=== PATIENT | female | born 1935 | race Caucasian/White ===

== ENCOUNTER → 2016-11-11 | Outpatient (CLI) | payer MEDICARE, BC ==
[2016-05-19 10:21] VITALS: BP 98/31
[~2016-11-11] MED LIST: ARTHRITIS PAIN325 M1 PO; CALCIUM CARBONATE PO; CALCIUM1 CAP PO; CITRACAL-VIT D1 EACH PO; CLOBETASOL PROP TOP; ELIQUIS5 MG PO; FLECAINIDE ACE100 MG PO; FLECAINIDE ACET50 MG PO; FLECAINIDE PO; MEDI-FIRST ASP325 MG PO; NIZORAL A-D 20200 ML TOP; TOPROL XL50 MG PO; VITAMIN D2000 I1 PO; VITAMIN D22000 IU PO; ZANTAC150 MG PO
== END ==
LOC: LAB 08:47
DX: Z01.419 Encounter for gynecological examination (general) (routine) without abnormal findings (principal); I48.2 Chronic atrial fibrillation; E03.4 Atrophy of thyroid (acquired); Z86.73 Personal history of transient ischemic attack (TIA), and cerebral infarction without residual deficits

== ENCOUNTER → 2016-11-18 | Outpatient (CLI) | payer MEDICARE, BC ==
[2016-11-18 09:58] VITALS: BP 134/47
== END ==
LOC: AMSURD 09:47 → CARDLAB 09:47
DX: I48.91 Unspecified atrial fibrillation (principal)

== ENCOUNTER → 2016-12-01 | Outpatient (CLI) | payer MEDICARE, BC ==
[2016-11-18 09:58] VITALS: BP 134/47
== END ==
LOC: MAMMO 08:58
DX: Z12.31 Encounter for screening mammogram for malignant neoplasm of breast (principal)
CPT/HCPCS: G0202

== ENCOUNTER 2017-02-22 11:07 | Emergency (ER) | payer MEDICARE, BC ==
[~2017-02-22] VITALS: Ht 175.3 cm; Wt 63.2 kg
[2017-02-22 12:15] VITALS: BP 160/73
== END 2017-02-22 12:15 | disposition home or self-care (01) ==
LOC: ED 11:07
DX: I48.91 Unspecified atrial fibrillation (principal); Z79.01 Long term (current) use of anticoagulants; R42 Dizziness and giddiness; E03.9 Hypothyroidism, unspecified

== ENCOUNTER → 2017-11-03 | Outpatient (CLI) | payer MEDICARE, BC ==
[~2017-11-03] VITALS: Ht 175.3 cm; Wt 61.4 kg
[2017-11-03 11:08] VITALS: BP 134/62
== END ==
LOC: AMSURD 10:47
DX: I48.0 Paroxysmal atrial fibrillation (principal)

== ENCOUNTER → 2017-11-28 | Outpatient (CLI) | payer MEDICARE, BC ==
[2017-11-03 11:08] VITALS: BP 134/62
[2017-11-28 09:30] LABS: EOS # 0.1 (0.04-0.40); EOS % 1.8 % (1.0-5.0); HEMATOCRIT 46.2 % (37.0-47.0); HEMOGLOBIN 15.2 g/dL (12.5-16.0); LYMPH# 1.1 (1.50-4.00); MEAN CELL VOLUME 94 fl (78-100); MEAN CORPUSCULAR HEMOGLOBIN 31 pg (27-31); MEAN CORPUSCULAR HGB CONC 33 g/dL (33-37); MEAN PLATELET VOLUME 10.7 fl (7.4-10.4); MONO # 0.5 (0.20-0.80); NEU # 3.3 (1.40-6.50); PLATELET COUNT 184 K/mm3 (130-400); RED BLOOD COUNT 4.92 M/mm3 (4.10-5.30); RED CELL DISTRIBUTION WIDTH 13.2 % (11.5-14.5)
[2017-11-28 09:48] LABS: ALBUMIN 4.3 g/dL (3.5-5.0); BUN/CREATININE RATIO 21.1 (6.0-26.0); CALCIUM 9.5 mg/dL (8.4-10.2); POTASSIUM 4.6 mmol/L (3.6-5.0); TOTAL BILIRUBIN 0.7 mg/dL (0.2-1.3); TOTAL PROTEIN 8.1 g/dL (6.3-8.2)
== END ==
LOC: LAB 09:10
PROVIDERS: Nurse Practitioner Family
DX: Z00.00 Encounter for general adult medical examination without abnormal findings (principal); E03.9 Hypothyroidism, unspecified; I48.91 Unspecified atrial fibrillation

== ENCOUNTER → 2017-12-13 | Outpatient (CLI) | payer MEDICARE, BC ==
[2017-11-03 11:08] VITALS: BP 134/62
== END ==
LOC: MAMMO 15:02
DX: Z12.31 Encounter for screening mammogram for malignant neoplasm of breast (principal)

== ENCOUNTER → 2018-05-16 | Outpatient (CLI) | payer MEDICARE, BC ==
[~2018-05-16] VITALS: Ht 175.3 cm; Wt 59.1 kg
[2018-05-16 13:34] VITALS: BP 134/51
== END ==
LOC: AMSURD 13:18
DX: I48.0 Paroxysmal atrial fibrillation (principal)

== ENCOUNTER → 2019-01-04 | Outpatient (CLI) | payer MEDICARE, BC ==
[2018-05-16 13:34] VITALS: BP 134/51
[2019-01-04 17:12] LABS: ALBUMIN 4.1 g/dL (3.4-4.8); POTASSIUM 4.4 mmol/L (3.5-5.1)
[2019-01-04 17:13] LABS: CALCIUM 10.2 mg/dL (8.3-10.5)
[2019-01-04 17:14] LABS: TOTAL PROTEIN 7.5 g/dL (6.2-8.1)
[2019-01-04 17:16] LABS: TOTAL BILIRUBIN 0.5 mg/dL (0.2-1.2)
[2019-01-04 18:05] LABS: EOS # 0.1 (0.04-0.40); EOS % 1.5 % (1.0-5.0); HEMATOCRIT 37.1 % (37.0-47.0); HEMOGLOBIN 11.6 g/dL (12.5-16.0); LYMPH# 1.5 (1.50-4.00); MEAN CELL VOLUME 86 fl (78-100); MEAN CORPUSCULAR HEMOGLOBIN 27 pg (27-31); MEAN CORPUSCULAR HGB CONC 31 g/dL (33-37); MEAN PLATELET VOLUME 11.9 fl (7.4-10.4); MONO # 0.7 (0.20-0.80); NEU # 5.8 (1.40-6.50); PLATELET COUNT 186 K/mm3 (130-400); RED BLOOD COUNT 4.32 M/mm3 (4.10-5.30); RED CELL DISTRIBUTION WIDTH 17.8 % (11.5-14.5); WHITE BLOOD COUNT 8.1 K/mm3 (4.8-10.8)
== END ==
LOC: LAB 16:22
PROVIDERS: Family Medicine
DX: I48.91 Unspecified atrial fibrillation (principal); R63.0 Anorexia; E03.9 Hypothyroidism, unspecified; E55.9 Vitamin D deficiency, unspecified

== ENCOUNTER → 2019-01-15 | Outpatient (CLI) | payer MEDICARE, BC ==
[2018-05-16 13:34] VITALS: BP 134/51
== END ==
LOC: MAMMO 12:56
DX: Z12.31 Encounter for screening mammogram for malignant neoplasm of breast (principal)

== ENCOUNTER → 2019-02-08 | Outpatient (CLI) | payer MEDICARE, BC ==
[2018-05-16 13:34] VITALS: BP 134/51
== END ==
LOC: CARDREHAB 07:32 → CARDLAB 09:26
DX: I48.0 Paroxysmal atrial fibrillation (principal); Z79.01 Long term (current) use of anticoagulants; Z79.899 Other long term (current) drug therapy
CPT/HCPCS: A9500

== ENCOUNTER 2019-03-02 19:02 | Emergency (ER) | payer MEDICARE, BC ==
[~2019-03-02] VITALS: Ht 175.3 cm; Wt 61.8 kg
[~2019-03-02 19:02] MED LIST changes: -FLECAINIDE ACET50 MG PO
[2019-03-02 20:03] LABS: HEMATOCRIT 41.8 % (37.0-47.0); HEMOGLOBIN 13.8 g/dL (12.5-16.0); MEAN CELL VOLUME 93 fl (78-100); MEAN CORPUSCULAR HEMOGLOBIN 31 pg (27-31); MEAN CORPUSCULAR HGB CONC 33 g/dL (33-37); MEAN PLATELET VOLUME 10.9 fl (7.4-10.4); PLATELET COUNT 192 K/mm3 (130-400); RED CELL DISTRIBUTION WIDTH 12.9 % (11.5-14.5); WHITE BLOOD COUNT 5.4 K/mm3 (4.8-10.8)
[2019-03-02 20:12] LABS: POTASSIUM 4.4 mmol/L (3.5-5.1)
[2019-03-02 20:13] LABS: CALCIUM 9.6 mg/dL (8.3-10.5)
[2019-03-02 20:16] LABS: TOTAL BILIRUBIN 0.5 mg/dL (0.2-1.2)
[2019-03-02 20:18] LABS: LYMPHOCYTE 25 % (20-51); MONOCYTE 12 % (3-10); NEUTROPHILS 59 % (42-75)
[2019-03-02 21:40] VITALS: BP 157/67
== END 2019-03-02 21:40 | disposition home or self-care (01) ==
LOC: ED 19:02
PROVIDERS: Family Medicine
DX: I48.91 Unspecified atrial fibrillation (principal); Z79.01 Long term (current) use of anticoagulants; Z86.73 Personal history of transient ischemic attack (TIA), and cerebral infarction without residual deficits; Z87.891 Personal history of nicotine dependence

== ENCOUNTER → 2020-02-05 | Outpatient (CLI) | payer MEDICARE, BC ==
[2020-02-05 14:24] LABS: EOS # 0.1 (0.04-0.40); HEMATOCRIT 43.5 % (37.0-47.0); HEMOGLOBIN 14.3 g/dL (12.5-16.0); LYMPH# 0.9 (1.50-4.00); MEAN CELL VOLUME 94 fl (78-100); MEAN CORPUSCULAR HEMOGLOBIN 31 pg (27-31); MEAN CORPUSCULAR HGB CONC 33 g/dL (33-37); MEAN PLATELET VOLUME 10.4 fl (7.4-10.4); MONO # 0.5 (0.20-0.80); NEU # 3.7 (1.40-6.50); PLATELET COUNT 199 K/mm3 (130-400); RED BLOOD COUNT 4.62 M/mm3 (4.10-5.30); RED CELL DISTRIBUTION WIDTH 12.7 % (11.5-14.5); WHITE BLOOD COUNT 5.2 K/mm3 (4.8-10.8)
[2020-02-05 14:34] LABS: POTASSIUM 4.4 mmol/L (3.5-5.1)
[2020-02-05 14:35] LABS: ALBUMIN 4.1 g/dL (3.4-4.8)
[2020-02-05 14:36] LABS: CALCIUM 9.7 mg/dL (8.3-10.5)
[2020-02-05 14:37] LABS: TOTAL PROTEIN 7.2 g/dL (6.2-8.1)
[2020-02-05 14:39] LABS: TOTAL BILIRUBIN 0.5 mg/dL (0.2-1.2)
== END ==
LOC: LAB 14:13
PROVIDERS: Family Medicine
DX: Z00.00 Encounter for general adult medical examination without abnormal findings (principal); E03.4 Atrophy of thyroid (acquired); I48.91 Unspecified atrial fibrillation; Z86.73 Personal history of transient ischemic attack (TIA), and cerebral infarction without residual deficits

== ENCOUNTER → 2020-09-18 | Outpatient (CLI) | payer MEDICARE, BC ==
[2020-09-18 14:39] LABS: HEMATOCRIT 43.6 % (37.0-47.0); MEAN CELL VOLUME 96 fl (78-100); MEAN CORPUSCULAR HEMOGLOBIN 31 pg (27-31); MEAN CORPUSCULAR HGB CONC 32 g/dL (33-37); MEAN PLATELET VOLUME 10.8 fl (7.4-10.4); PLATELET COUNT 197 K/mm3 (130-400); RED BLOOD COUNT 4.56 M/mm3 (4.10-5.30); RED CELL DISTRIBUTION WIDTH 12.5 % (11.5-14.5); WHITE BLOOD COUNT 4.4 K/mm3 (4.8-10.8)
[2020-09-18 14:45] LABS: POTASSIUM 4.5 mmol/L (3.5-5.1)
[2020-09-18 14:46] LABS: CALCIUM 9.5 mg/dL (8.3-10.5)
[2020-09-18 14:49] LABS: TOTAL BILIRUBIN 0.4 mg/dL (0.2-1.2)
[2020-09-18 15:27] LABS: LYMPHOCYTE 23 % (20-51); MONOCYTE 15 % (3-10); NEUTROPHILS 60 % (42-75)
[2020-09-18 16:40] LABS: URINE APPEARANCE CLEAR; URINE BILIRUBIN NEGATIVE (NEGATIVE); URINE BLOOD NEGATIVE (NEGATIVE); URINE COLOR YELLOW; URINE GLUCOSE NEGATIVE (NEGATIVE); URINE KETONE NEGATIVE (NEGATIVE); URINE LEUKOCYTE ESTERASE NEGATIVE (NEGATIVE); URINE NITRATE NEGATIVE (NEGATIVE); URINE PROTEIN(semi-quant) NEGATIVE (NEGATIVE); URINE UROBILINOGEN NORMAL (NORMAL)
[2020-09-18 16:41] LABS: URINE WBC 0-1 /hpf (0-3)
== END ==
LOC: LAB 14:25
PROVIDERS: Family Medicine
DX: R53.1 Weakness (principal); E03.9 Hypothyroidism, unspecified; E55.9 Vitamin D deficiency, unspecified

== ENCOUNTER → 2020-10-16 | Outpatient (CLI) | payer MEDICARE, BC | LOC: AMSURD 13:37 | DX: I48.0 Paroxysmal atrial fibrillation (principal) ==

== ENCOUNTER → 2021-04-28 | Outpatient (CLI) | payer MEDICARE, BC ==
[2021-04-28 10:36] LABS: BASO # 0.03 K/mm3 (0.02-0.10); EOS # 0.08 K/mm3 (0.04-0.40); EOS % 1.9 % (1.0-5.0); HEMATOCRIT 43.7 % (37.0-47.0); HEMOGLOBIN 14.3 g/dL (12.5-16.0); LYMPH# 0.86 K/mm3 (1.50-4.00); MEAN CELL VOLUME 95 fl (78-100); MEAN CORPUSCULAR HEMOGLOBIN 31 pg (27-31); MEAN CORPUSCULAR HGB CONC 33 g/dL (33-37); MEAN PLATELET VOLUME 10.5 fl (7.4-10.4); MONO # 0.52 K/mm3 (0.20-0.80); NEU # 2.63 K/mm3 (1.40-6.50); PLATELET COUNT 181 K/mm3 (130-400); RED BLOOD COUNT 4.61 M/mm3 (4.10-5.30); WHITE BLOOD COUNT 4.1 K/mm3 (4.8-10.8)
[2021-04-28 10:51] LABS: POTASSIUM 4.5 mmol/L (3.5-5.1)
[2021-04-28 10:53] LABS: CALCIUM 10.4 mg/dL (8.3-10.5)
[2021-04-28 10:54] LABS: TOTAL PROTEIN 6.8 g/dL (6.2-8.1)
[2021-04-28 10:56] LABS: TOTAL BILIRUBIN 0.7 mg/dL (0.2-1.2)
== END ==
LOC: LAB 10:10
PROVIDERS: Family Medicine
DX: I48.0 Paroxysmal atrial fibrillation (principal); E03.9 Hypothyroidism, unspecified; E55.9 Vitamin D deficiency, unspecified

== ENCOUNTER 2021-08-26 13:25 | Observation (INO) | payer MEDICARE, BC ==
[~2021-08-26] VITALS: Wt 47.7 kg
[2021-08-26] MEDS ORDERED: DITROPAN XL 5MG5 M1 PO (13:32)
[2021-08-26 14:10] LABS: BASO # 0.03 K/mm3 (0.02-0.10); EOS # 0.06 K/mm3 (0.04-0.40); EOS % 1.3 % (1.0-5.0); HEMATOCRIT 40.6 % (37.0-47.0); HEMOGLOBIN 13.4 g/dL (12.5-16.0); LYMPH# 1.05 K/mm3 (1.50-4.00); MEAN CELL VOLUME 95 fl (78-100); MEAN CORPUSCULAR HEMOGLOBIN 31 pg (27-31); MEAN CORPUSCULAR HGB CONC 33 g/dL (33-37); MEAN PLATELET VOLUME 10.4 fl (7.4-10.4); MONO # 0.54 K/mm3 (0.20-0.80); NEU # 3.04 K/mm3 (1.40-6.50); PLATELET COUNT 178 K/mm3 (130-400); RED BLOOD COUNT 4.27 M/mm3 (4.10-5.30); RED CELL DISTRIBUTION WIDTH 12.2 % (11.5-14.5); WHITE BLOOD COUNT 4.7 K/mm3 (4.8-10.8)
[2021-08-26 14:23] LABS: ALBUMIN 3.9 g/dL (3.4-4.8)
[2021-08-26 14:24] LABS: POTASSIUM 4.4 mmol/L (3.5-5.1)
[2021-08-26 14:25] LABS: CALCIUM 9.7 mg/dL (8.3-10.5)
[2021-08-26 14:26] LABS: TOTAL PROTEIN 6.5 g/dL (6.2-8.1)
[2021-08-26 14:28] LABS: TOTAL BILIRUBIN 0.6 mg/dL (0.2-1.2)
[2021-08-26 14:58] LABS: PH-URINE 5.5 (5.0 - 8.0); URINE APPEARANCE HAZY; URINE BILIRUBIN NEGATIVE (NEGATIVE); URINE BLOOD NEGATIVE (NEGATIVE); URINE COLOR YELLOW; URINE GLUCOSE NEGATIVE (NEGATIVE); URINE KETONE NEGATIVE (NEGATIVE); URINE LEUKOCYTE ESTERASE 1+ (NEGATIVE); URINE NITRATE NEGATIVE (NEGATIVE); URINE PROTEIN(semi-quant) TRACE (NEGATIVE); URINE UROBILINOGEN NORMAL (NORMAL)
[2021-08-26 14:59] LABS: URINE MUCUS PRESENT (NOT PRESENT)
[2021-08-26 15:33] VITALS: BP 180/63
[2021-08-26 18:00] VITALS: BP 189/68
[2021-08-26 22:47] VITALS: BP 149/68
[2021-08-27 06:03] VITALS: BP 159/62
[2021-08-27 10:10] VITALS: BP 122/63
== END 2021-08-27 14:10 | disposition home or self-care (01) ==
LOC: ED 13:25 → MED/SURG 16:59
PROVIDERS: ADMIT Physician Assistant
DX: R41.0 Disorientation, unspecified (principal); I63.9 Cerebral infarction, unspecified; I83.90 Asymptomatic varicose veins of unspecified lower extremity; I48.0 Paroxysmal atrial fibrillation; R53.1 Weakness; K21.9 Gastro-esophageal reflux disease without esophagitis; E03.9 Hypothyroidism, unspecified; E55.9 Vitamin D deficiency, unspecified; I10 Essential (primary) hypertension; R29.6 Repeated falls; F32.A Depression, unspecified; Z79.899 Other long term (current) drug therapy; Z79.01 Long term (current) use of anticoagulants
CPT/HCPCS: G0378

== ENCOUNTER 2021-09-11 14:46 | Observation (INO) | payer MEDICARE, BC ==
[~2021-09-11] VITALS: Ht 175.3 cm; Wt 46.9 kg
[~2021-09-11 14:46] MED LIST changes: +DITROPAN XL 5MG5 M1 PO
[2021-09-11 15:22] LABS: BASO # 0.02 K/mm3 (0.02-0.10); EOS # 0.01 K/mm3 (0.04-0.40); EOS % 0.1 % (1.0-5.0); HEMOGLOBIN 14.8 g/dL (12.5-16.0); LYMPH# 0.66 K/mm3 (1.50-4.00); MEAN CELL VOLUME 92 fl (78-100); MEAN CORPUSCULAR HEMOGLOBIN 32 pg (27-31); MEAN CORPUSCULAR HGB CONC 34 g/dL (33-37); MEAN PLATELET VOLUME 10.6 fl (7.4-10.4); MONO # 0.23 K/mm3 (0.20-0.80); PLATELET COUNT 188 K/mm3 (130-400); RED BLOOD COUNT 4.68 M/mm3 (4.10-5.30); RED CELL DISTRIBUTION WIDTH 11.9 % (11.5-14.5); WHITE BLOOD COUNT 7.2 K/mm3 (4.8-10.8)
[2021-09-11 15:33] LABS: POTASSIUM 4.3 mmol/L (3.5-5.1)
[2021-09-11 15:34] LABS: CALCIUM 9.8 mg/dL (8.3-10.5)
[2021-09-11 17:13] LABS: URINE APPEARANCE CLOUDY; URINE BILIRUBIN NEGATIVE (NEGATIVE); URINE BLOOD TRACE (NEGATIVE); URINE COLOR YELLOW; URINE GLUCOSE NEGATIVE (NEGATIVE); URINE KETONE 1+ (NEGATIVE); URINE LEUKOCYTE ESTERASE TRACE (NEGATIVE); URINE NITRATE NEGATIVE (NEGATIVE); URINE PROTEIN(semi-quant) TRACE (NEGATIVE); URINE UROBILINOGEN NORMAL (NORMAL)
[2021-09-11] MEDS ORDERED: ARICEPT10 M1 PO (21:33)
[2021-09-11 22:00] VITALS: BP 183/54
[2021-09-12] VITALS (7 sets, daily range): BP systolic 77–181; BP diastolic 49–76
[2021-09-13 01:12] VITALS: BP 180/66
[2021-09-13 05:48] VITALS: BP 177/76
[2021-09-13 08:24] VITALS: BP 167/64
[2021-09-13 10:09] LABS: POTASSIUM 3.9 mmol/L (3.5-5.1)
[2021-09-13 10:10] LABS: CALCIUM 9.6 mg/dL (8.3-10.5)
[2021-09-13 10:11] LABS: BASO # 0.03 K/mm3 (0.02-0.10); EOS # 0.08 K/mm3 (0.04-0.40); EOS % 1.3 % (1.0-5.0); HEMATOCRIT 40.1 % (37.0-47.0); HEMOGLOBIN 13.7 g/dL (12.5-16.0); LYMPH# 1.49 K/mm3 (1.50-4.00); MEAN CELL VOLUME 94 fl (78-100); MEAN CORPUSCULAR HEMOGLOBIN 32 pg (27-31); MEAN CORPUSCULAR HGB CONC 34 g/dL (33-37); MEAN PLATELET VOLUME 12.2 fl (7.4-10.4); MONO # 0.55 K/mm3 (0.20-0.80); NEU # 3.79 K/mm3 (1.40-6.50); PLATELET COUNT 200 K/mm3 (130-400); RED BLOOD COUNT 4.28 M/mm3 (4.10-5.30); RED CELL DISTRIBUTION WIDTH 11.9 % (11.5-14.5); WHITE BLOOD COUNT 5.9 K/mm3 (4.8-10.8)
[2021-09-13 13:11] VITALS: BP 147/67
[2021-09-13 18:08] VITALS: BP 160/65
[2021-09-13 21:35] VITALS: BP 162/74
[2021-09-14 05:53] VITALS: BP 150/56
[2021-09-14 10:01] VITALS: BP 94/59
[2021-09-14 13:54] VITALS: BP 116/57
[2021-09-14 18:10] VITALS: BP 158/59
[2021-09-14 22:40] VITALS: BP 162/52
[2021-09-15 02:08] VITALS: BP 154/58
[2021-09-15 06:06] VITALS: BP 193/48
[2021-09-15] MEDS ORDERED: LISINOPRIL20 MG PO (08:59)
[2021-09-15] MEDS ORDERED: PROMETHAZINE12.5 M5 PO (09:01)
[2021-09-15] MEDS ORDERED: ACETAMINOPHEN325 M1 PO (09:02)
[2021-09-15] MEDS ORDERED: HEALTHYLAX17 GM/Dose PO (09:02)
[2021-09-15 09:22] VITALS: BP 132/69
[2021-09-15 09:32] VITALS: BP 132/69
== END 2021-09-15 11:23 ==
LOC: ED 14:46 → MED/SURG 20:04
PROVIDERS: Nurse Practitioner; ADMIT Family Medicine
DX: I10 Essential (primary) hypertension (principal); F03.90 Unspecified dementia, unspecified severity, without behavioral disturbance, psychotic disturbance, mood disturbance, and anxiety; N39.0 Urinary tract infection, site not specified; R11.0 Nausea; R00.1 Bradycardia, unspecified; Z86.79 Personal history of other diseases of the circulatory system; Z79.01 Long term (current) use of anticoagulants; Z79.899 Other long term (current) drug therapy; Z20.822 Contact with and (suspected) exposure to COVID-19
CPT/HCPCS: G0378; J0696; J3490; J7040

== ENCOUNTER → 2021-09-22 | Outpatient (CLI) | payer MEDICARE, BC ==
[~2021-09-22] MED LIST changes: +ACETAMINOPHEN325 M1 PO; +ARICEPT10 M1 PO; +HEALTHYLAX17 GM/Dose PO; +LISINOPRIL20 MG PO; +PROMETHAZINE12.5 M5 PO
[2021-09-22 14:37] LABS: URINE APPEARANCE CLOUDY; URINE COLOR YELLOW
[2021-09-22 14:43] LABS: PH-URINE 6.5 (5.0 - 8.0); URINE BILIRUBIN NEGATIVE (NEGATIVE); URINE BLOOD TRACE (NEGATIVE); URINE GLUCOSE NEGATIVE (NEGATIVE); URINE KETONE NEGATIVE (NEGATIVE); URINE LEUKOCYTE ESTERASE 1+ (NEGATIVE); URINE NITRATE NEGATIVE (NEGATIVE); URINE PROTEIN(semi-quant) TRACE (NEGATIVE); URINE UROBILINOGEN NORMAL (NORMAL)
[2021-09-22 14:44] LABS: URINE MUCUS PRESENT (NOT PRESENT)
== END ==
LOC: LAB 14:06
PROVIDERS: Family Medicine
DX: I63.9 Cerebral infarction, unspecified (principal); F03.90 Unspecified dementia, unspecified severity, without behavioral disturbance, psychotic disturbance, mood disturbance, and anxiety; K21.9 Gastro-esophageal reflux disease without esophagitis; E03.9 Hypothyroidism, unspecified; N39.46 Mixed incontinence; I48.0 Paroxysmal atrial fibrillation; F32.9 Major depressive disorder, single episode, unspecified; E55.9 Vitamin D deficiency, unspecified; N39.0 Urinary tract infection, site not specified

== ENCOUNTER → 2021-10-05 | Outpatient (CLI) | payer MEDICARE, BC ==
[2021-10-05 16:26] LABS: HEMATOCRIT 45.6 % (37.0-47.0); HEMOGLOBIN 15.3 g/dL (12.5-16.0); MEAN PLATELET VOLUME 12.2 fl (7.4-10.4); RED BLOOD COUNT 4.86 M/mm3 (4.10-5.30); RED CELL DISTRIBUTION WIDTH 11.9 % (11.5-14.5)
[2021-10-05 16:34] LABS: ALBUMIN 4.2 g/dL (3.4-4.8); POTASSIUM 4.3 mmol/L (3.5-5.1)
[2021-10-05 16:35] LABS: CALCIUM 10.7 mg/dL (8.3-10.5)
[2021-10-05 16:36] LABS: TOTAL PROTEIN 7.3 g/dL (6.2-8.1)
[2021-10-05 16:38] LABS: TOTAL BILIRUBIN 0.6 mg/dL (0.2-1.2)
== END ==
LOC: LAB 15:24
PROVIDERS: Family Medicine
DX: R53.1 Weakness (principal)

== ENCOUNTER → 2021-10-07 | Outpatient (CLI) | payer MEDICARE, BC ==
[2021-10-07 23:34] LABS: PTH,INTACT 42.4 pg/mL (6.6-88.9)
== END ==
LOC: LAB 09:17
PROVIDERS: Family Medicine
DX: E83.52 Hypercalcemia (principal)

== ENCOUNTER → 2021-10-15 | Outpatient (CLI) | payer MEDICARE, BC | LOC: RAD 12:16 | DX: R10.9 Unspecified abdominal pain (principal) ==

== ENCOUNTER → 2021-11-10 | Day surgery (SDC) | payer MEDICARE, BC | END | disposition home or self-care (01) | LOC: MSO 10:18 | DX: H25.812 Combined forms of age-related cataract, left eye (principal) | CPT/HCPCS: 00142; J0171; J2250; V2632 ==

== ENCOUNTER → 2021-12-08 | Day surgery (SDC) | payer MEDICARE, BC | END | disposition home or self-care (01) | LOC: MSO 02:16 | DX: H25.811 Combined forms of age-related cataract, right eye (principal) | CPT/HCPCS: 00142; J0171; J2250; V2632 ==

== ENCOUNTER 2022-02-01 10:21 | Emergency (ER) | payer MEDICARE, BC ==
[~2022-02-01] VITALS: Ht 167.6 cm; Wt 49.9 kg
[2022-02-01 11:27] LABS: BASO # 0.03 K/mm3 (0.02-0.10); EOS # 0.05 K/mm3 (0.04-0.40); EOS % 1.1 % (1.0-5.0); HEMATOCRIT 39.9 % (37.0-47.0); HEMOGLOBIN 13.1 g/dL (12.5-16.0); LYMPH# 0.79 K/mm3 (1.50-4.00); MEAN CELL VOLUME 97 fl (78-100); MEAN CORPUSCULAR HEMOGLOBIN 32 pg (27-31); MEAN CORPUSCULAR HGB CONC 33 g/dL (33-37); MEAN PLATELET VOLUME 11.2 fl (7.4-10.4); MONO # 0.37 K/mm3 (0.20-0.80); PLATELET COUNT 167 K/mm3 (130-400); RED BLOOD COUNT 4.13 M/mm3 (4.10-5.30); RED CELL DISTRIBUTION WIDTH 11.8 % (11.5-14.5); WHITE BLOOD COUNT 4.7 K/mm3 (4.8-10.8)
[2022-02-01 11:33] LABS: ALBUMIN 3.8 g/dL (3.4-4.8)
[2022-02-01 11:34] LABS: POTASSIUM 4.1 mmol/L (3.5-5.1)
[2022-02-01 11:36] LABS: TOTAL PROTEIN 7.1 g/dL (6.2-8.1)
[2022-02-01 11:37] LABS: CALCIUM 9.5 mg/dL (8.3-10.5)
[2022-02-01 11:38] LABS: TOTAL BILIRUBIN 0.6 mg/dL (0.2-1.2)
[2022-02-01 11:39] LABS: PROTHROMBIN TIME 10.2 SECONDS (9.0-12.0)
[2022-02-01 13:35] LABS: URINE APPEARANCE CLEAR; URINE BILIRUBIN NEGATIVE (NEGATIVE); URINE BLOOD TRACE (NEGATIVE); URINE COLOR YELLOW; URINE GLUCOSE NEGATIVE (NEGATIVE); URINE KETONE NEGATIVE (NEGATIVE); URINE LEUKOCYTE ESTERASE TRACE (NEGATIVE); URINE MUCUS PRESENT (NOT PRESENT); URINE NITRATE NEGATIVE (NEGATIVE); URINE PROTEIN(semi-quant) TRACE (NEGATIVE); URINE UROBILINOGEN NORMAL (NORMAL)
[2022-02-01] MEDS ORDERED: ZOFRAN ODT4 MG PO (14:45)
[2022-02-01 15:00] VITALS: BP 154/87
== END 2022-02-01 15:07 | disposition home or self-care (01) ==
LOC: ED 10:21
PROVIDERS: Physician Assistant
DX: R53.1 Weakness (principal); R11.2 Nausea with vomiting, unspecified; I48.0 Paroxysmal atrial fibrillation; Z20.822 Contact with and (suspected) exposure to COVID-19; Z79.01 Long term (current) use of anticoagulants
CPT/HCPCS: J2405; J7030

== ENCOUNTER 2022-09-16 05:09 | Emergency (ER) | payer MEDICARE, BC ==
[~2022-09-16 05:09] MED LIST changes: +CALCIUM CARBON500 M3 PO; +ELIQUIS2.5 MG PO; +FAMOTIDINE20 MG PO; +LISINOPRIL10 MG PO; +REMERON15 MG PO; +ZOFRAN ODT4 MG PO
[2022-09-16 05:44] LABS: BASO # 0.03 K/mm3 (0.02-0.10); EOS # 0.03 K/mm3 (0.04-0.40); EOS % 0.2 % (1.0-5.0); HEMATOCRIT 43.4 % (37.0-47.0); HEMOGLOBIN 13.9 g/dL (12.5-16.0); LYMPH# 0.69 K/mm3 (1.50-4.00); MEAN CELL VOLUME 97 fl (78-100); MEAN CORPUSCULAR HEMOGLOBIN 31 pg (27-31); MEAN CORPUSCULAR HGB CONC 32 g/dL (33-37); MEAN PLATELET VOLUME 10.2 fl (7.4-10.4); MONO # 0.82 K/mm3 (0.20-0.80); NEU # 15.72 K/mm3 (1.40-6.50); PLATELET COUNT 292 K/mm3 (130-400); RED BLOOD COUNT 4.47 M/mm3 (4.10-5.30); RED CELL DISTRIBUTION WIDTH 12.5 % (11.5-14.5); WHITE BLOOD COUNT 17.3 K/mm3 (4.8-10.8)
[2022-09-16 05:46] LABS: ALBUMIN 3.6 g/dL (3.4-4.8); POTASSIUM 4.4 mmol/L (3.5-5.1); SODIUM 137 mmol/L (136-145)
[2022-09-16 05:47] LABS: CALCIUM 10.3 mg/dL (8.3-10.5)
[2022-09-16 05:48] LABS: GLUCOSE 132 mg/dL (65-105)
[2022-09-16 05:49] LABS: TOTAL PROTEIN 7.7 g/dL (6.2-8.1)
[2022-09-16 05:50] LABS: CARBON DIOXIDE 22 mmol/L (23-31); TOTAL BILIRUBIN 0.6 mg/dL (0.2-1.2)
[2022-09-16 05:54] LABS: AST-SGOT 19 U/L (5-34)
[2022-09-16 05:55] LABS: ALT/SGPT 13 U/L (0-55)
[2022-09-16 06:01] LABS: TROPONIN-I < 0.030 ng/mL (<0.030)
[2022-09-16 07:13] LABS: PROTHROMBIN TIME 10.4 SECONDS (9.0-12.0)
[2022-09-16 08:30] LABS: URINE APPEARANCE HAZY; URINE BILIRUBIN NEGATIVE (NEGATIVE); URINE BLOOD TRACE (NEGATIVE); URINE COLOR YELLOW; URINE GLUCOSE NEGATIVE (NEGATIVE); URINE KETONE NEGATIVE (NEGATIVE); URINE LEUKOCYTE ESTERASE 1+ (NEGATIVE); URINE NITRATE POSITIVE (NEGATIVE); URINE PROTEIN(semi-quant) TRACE (NEGATIVE); URINE UROBILINOGEN NORMAL (NORMAL)
[2022-09-16] MEDS ORDERED: MACROBID 100 M100 MG PO (08:39)
[2022-09-16 10:00] VITALS: BP 127/61
== END 2022-09-16 10:20 | disposition home or self-care (01) ==
LOC: ED 05:09
PROVIDERS: Physician Assistant
DX: R41.82 Altered mental status, unspecified (principal); N39.0 Urinary tract infection, site not specified; I48.91 Unspecified atrial fibrillation; R55 Syncope and collapse; Z86.16 Personal history of COVID-19; Z79.01 Long term (current) use of anticoagulants
CPT/HCPCS: J0696

== ENCOUNTER → 2022-09-29 | Outpatient (CLI) | payer MEDICARE, BC ==
[~2022-09-29] MED LIST changes: +MACROBID 100 M100 MG PO
[2022-09-29 01:01] LABS: URINE APPEARANCE CLOUDY; URINE BILIRUBIN NEGATIVE (NEGATIVE); URINE BLOOD TRACE (NEGATIVE); URINE COLOR YELLOW; URINE GLUCOSE NEGATIVE (NEGATIVE); URINE KETONE NEGATIVE (NEGATIVE); URINE LEUKOCYTE ESTERASE TRACE (NEGATIVE); URINE NITRATE NEGATIVE (NEGATIVE); URINE PROTEIN(semi-quant) TRACE (NEGATIVE); URINE UROBILINOGEN NORMAL (NORMAL)
== END ==
LOC: LAB 00:23
PROVIDERS: Family Medicine
DX: N39.0 Urinary tract infection, site not specified (principal)